=== PATIENT | male | born 1945 | race Caucasian/White ===

== ENCOUNTER 2022-01-14 10:12 | Inpatient (IN) | payer MEDICARE, MEDICAID ==
[2022-01-14] MEDS ORDERED: Sodium Chloride 0.9% 1,000 ML IV ONE ×2 (10:57→13:32)
[2022-01-14] MEDS ORDERED: Diltiazem 125 MG in Sodium Chloride 0.9% 100 ML IV SCH (11:45)
[2022-01-14] MEDS: Diltiazem 25 MG/5 ML SDV IVPUSH ONE ×3 (12:03→13:58)
[2022-01-14] MEDS ORDERED: LORazepam 2 MG/ML SDV IVPUSH ONE (12:12)
[2022-01-14] MEDS ORDERED: Ondansetron 4 MG/2 ML SDV IVPUSH ONE (12:13)
[2022-01-14] MEDS ORDERED: cefTRIAXone 2 GM Vial IVPUSH ONE (13:42)
[2022-01-14 14:29] LABS: CORONAVIRUS COVID-19 NAA NEGATIVE (NEGATIVE)
[2022-01-14] MEDS ORDERED: Nitroglycerin 0.4 MG Tab.SL SL PRN (15:08)
[2022-01-14] MEDS ORDERED: Divalproex Sodium Delayed-Release 250 MG Tab.CR PO SCH (15:15)
[2022-01-14] MEDS: Sodium Chloride 0.9% 1,000 ML IV SCH (16:17)
[2022-01-14] MEDS: Acetaminophen 325 MG Tab PO PRN ×2 (16:53→21:20)
[2022-01-14] MEDS ORDERED: Divalproex Sodium Delayed-Release 125 MG Cap.Sprink PO SCH (17:00)
[2022-01-14] MEDS ORDERED: Divalproex Sodium Delayed-Release 500 MG Tab.CR PO SCH (20:00)
[2022-01-14] MEDS: Carvedilol 3.125 MG Tab PO SCH (20:00)
[2022-01-14] MEDS: Divalproex Sodium Delayed-Release 125 MG Cap.Sprink PO SCH (21:19)
[2022-01-14] MEDS: Loratadine 10 MG Tab PO SCH (21:20)
[2022-01-14] MEDS: Apixaban 5 MG Tab PO SCH (21:20)
[2022-01-14] MEDS: atorvaSTATin 40 MG Tab PO SCH (21:20)
[2022-01-14] MEDS: traZODone 50 MG Tab PO SCH (21:20)
[2022-01-14] MEDS ORDERED: Sodium Chloride 0.9% 1,000 ML IV SCH (23:15)
[2022-01-15] MEDS ORDERED: Sodium Chloride 0.9% 1,000 ML IV SCH (02:15)
[2022-01-15] MEDS: Sodium Chloride 0.9% 1,000 ML IV SCH ×2 (06:39→16:52)
[2022-01-15] MEDS: Divalproex Sodium Delayed-Release 125 MG Cap.Sprink PO SCH ×2 (08:57→20:35)
[2022-01-15] MEDS: FLUoxetine 20 MG Cap PO SCH (08:58)
[2022-01-15] MEDS: predniSONE 5 MG Tab PO SCH (08:58)
[2022-01-15] MEDS: Carvedilol 3.125 MG Tab PO SCH ×2 (08:58→20:35)
[2022-01-15] MEDS: Famotidine 20 MG Tab PO SCH (08:58)
[2022-01-15] MEDS: Aspirin 81 MG Tab.EC PO SCH (09:01)
[2022-01-15] MEDS: Apixaban 5 MG Tab PO SCH ×2 (09:01→20:36)
[2022-01-15] MEDS: Lisinopril 2.5 MG Tab PO SCH (12:33)
[2022-01-15] MEDS ORDERED: cefTRIAXone 1 GM Vial IVPUSH SCH (13:30)
[2022-01-15] MEDS ORDERED: Sodium Chloride 0.9% 10 ML Syringe FLUSH PRN (14:20)
[2022-01-15] MEDS: Loratadine 10 MG Tab PO SCH (20:35)
[2022-01-15] MEDS: atorvaSTATin 40 MG Tab PO SCH (20:36)
[2022-01-15] MEDS: Acetaminophen 325 MG Tab PO PRN (20:36)
[2022-01-15] MEDS: traZODone 50 MG Tab PO SCH (20:36)
[2022-01-16] MEDS: Sodium Chloride 0.9% 1,000 ML IV SCH (03:08)
[2022-01-16] MEDS: FLUoxetine 20 MG Cap PO SCH (08:57)
[2022-01-16] MEDS: predniSONE 5 MG Tab PO SCH (08:57)
[2022-01-16] MEDS: Divalproex Sodium Delayed-Release 125 MG Cap.Sprink PO SCH ×2 (08:57→19:48)
[2022-01-16] MEDS: Apixaban 5 MG Tab PO SCH ×2 (08:58→20:34)
[2022-01-16] MEDS: Aspirin 81 MG Tab.EC PO SCH (08:58)
[2022-01-16] MEDS: Famotidine 20 MG Tab PO SCH (08:58)
[2022-01-16] MEDS: Carvedilol 3.125 MG Tab PO SCH ×2 (09:00→20:34)
[2022-01-16] MEDS: Lisinopril 2.5 MG Tab PO SCH (09:01)
[2022-01-16] MEDS: Amoxicillin/Clavulanate K 875-125 MG Tab PO SCH ×2 (11:10→21:02)
[2022-01-16] MEDS: Loratadine 10 MG Tab PO SCH (20:34)
[2022-01-16] MEDS: traZODone 50 MG Tab PO SCH (20:34)
[2022-01-16] MEDS: atorvaSTATin 40 MG Tab PO SCH (20:34)
[2022-01-16] MEDS: guaiFENesin/Dextromethorphan 100-10 MG/5 ML Soln 5 ML Cup PO PRN (20:37)
[2022-01-17] MEDS: Divalproex Sodium Delayed-Release 125 MG Cap.Sprink PO SCH (08:17)
[2022-01-17] MEDS: Famotidine 20 MG Tab PO SCH (08:17)
[2022-01-17] MEDS: Carvedilol 3.125 MG Tab PO SCH (08:17)
[2022-01-17] MEDS: Apixaban 5 MG Tab PO SCH (08:17)
[2022-01-17] MEDS: Aspirin 81 MG Tab.EC PO SCH (08:18)
[2022-01-17] MEDS: Lisinopril 2.5 MG Tab PO SCH (08:18)
[2022-01-17] MEDS: predniSONE 5 MG Tab PO SCH (08:18)
[2022-01-17] MEDS: FLUoxetine 20 MG Cap PO SCH (08:18)
[2022-01-17] MEDS: guaiFENesin/Dextromethorphan 100-10 MG/5 ML Soln 5 ML Cup PO PRN (08:28)
[2022-01-17] MEDS: Amoxicillin/Clavulanate K 875-125 MG Tab PO SCH (10:14)
== END 2022-01-17 12:56 | disposition home or self-care (01) | DRG 872 ==
LOC: FB.ED 10:12 → FB.MS 13:42
PROVIDERS: ADMIT Family Medicine; ATTEND Student in an Organized Health Care Education/Training Program
DX: A41.9 Sepsis, unspecified organism (principal); N39.0 Urinary tract infection, site not specified; I50.22 Chronic systolic (congestive) heart failure; N17.9 Acute kidney failure, unspecified; E88.09 Other disorders of plasma-protein metabolism, not elsewhere classified; N18.9 Chronic kidney disease, unspecified; R65.20 Severe sepsis without septic shock; I48.91 Unspecified atrial fibrillation; B96.1 Klebsiella pneumoniae [K. pneumoniae] as the cause of diseases classified elsewhere; Z79.52 Long term (current) use of systemic steroids; E86.0 Dehydration; I25.10 Atherosclerotic heart disease of native coronary artery without angina pectoris; E03.9 Hypothyroidism, unspecified; K21.9 Gastro-esophageal reflux disease without esophagitis; Z87.01 Personal history of pneumonia (recurrent); Z66 Do not resuscitate; Z20.822 Contact with and (suspected) exposure to COVID-19; G80.9 Cerebral palsy, unspecified; E78.5 Hyperlipidemia, unspecified; E66.9 Obesity, unspecified; I51.3 Intracardiac thrombosis, not elsewhere classified; F79 Unspecified intellectual disabilities; Z51.5 Encounter for palliative care; Z68.30 Body mass index [BMI] 30.0-30.9, adult; Z79.82 Long term (current) use of aspirin; Z79.01 Long term (current) use of anticoagulants; Z95.5 Presence of coronary angioplasty implant and graft; I25.2 Old myocardial infarction; Z79.899 Other long term (current) drug therapy; Z79.890 Hormone replacement therapy
CPT/HCPCS: 0241U; 36415; 70450; 71045; 80048; 80053; 81001; 83605; 85025; 85610; 86140; 87040; 87086; 87088; 93005; 93010; 96374; 96375; 99285; 99285-25; A9270-GY; J0696; J2060; J2405; J3490; J7030; J7512

== ENCOUNTER 2023-02-13 18:55 | Emergency (ER) | payer MEDICARE, MEDICAID ==
[2023-02-13 20:10] LABS: ESTIMATED GFR 62 mL/min (>60)
[2023-02-13 20:44] LABS: CORONAVIRUS COVID-19 NAA NEGATIVE (NEGATIVE)
[2023-02-13] MEDS ORDERED: Amoxicillin/Clavulanate K 500-125 MG Tab PO ONE (21:47)
== END 2023-02-13 22:02 | disposition home or self-care (01) ==
LOC: FB.ED 18:55
DX: R50.9 Fever, unspecified (principal); R79.82 Elevated C-reactive protein (CRP); D72.829 Elevated white blood cell count, unspecified; I10 Essential (primary) hypertension; E03.9 Hypothyroidism, unspecified; Z79.899 Other long term (current) drug therapy; Z20.822 Contact with and (suspected) exposure to COVID-19
CPT/HCPCS: 0240U; 36415; 71045; 80053; 81001; 85025; 86140; 99283; 99284; A9270-GY; C1758

== ENCOUNTER 2023-03-16 09:40 | Emergency (ER) | payer MEDICARE, MEDICAID ==
[2023-03-16] MEDS ORDERED: Sodium Chloride 0.9% 10 ML Syringe FLUSH PRN (09:51)
[2023-03-16 10:00] LABS: HEMATOCRIT 44.6 % (38.3-50.1); MEAN CORPUSCULAR HEMOGLOBIN 32.4 pg (27.0-33.3); MEAN CORPUSCULAR HGB CONC 33.7 g/dL (28.7-35.3); MEAN CORPUSCULAR VOLUME 96.1 fL (80.8-98.7); RED BLOOD CELL COUNT 4.64 x10(6)uL (3.90-5.90); RED CELL DISTRIBUTION WIDTH 15.1 % (12.4-15.0); WHITE BLOOD CELL COUNT,WBC 6.8 x10-3/uL (3.2-10.1)
[2023-03-16 10:09] LABS: A/G RATIO 0.7; ALANINE AMINOTRANSFERASE,ALT 14 U/L (12-36); ALBUMIN 2.6 g/dL (3.2-4.6); ALKALINE PHOSPHATASE 79 IU/L (56-112); ASPARTATE AMNIOTRANSFERASE,AST 26 IU/L (5-25); BILIRUBIN TOTAL 0.7 mg/dL (0.1-1.3); BLOOD UREA NITROGEN,BUN 16 mg/dL (7-18); BUN/CREATININE RATIO 7.3 (9-20); CALCIUM 9.9 mg/dL (8.6-10.2); CARBON DIOXIDE,CO2 23 mmol/L (21-32); CHLORIDE,CL 93 mmol/L (100-110); ESTIMATED GFR 30 mL/min (>60); GLUCOSE RANDOM 92 mg/dL (80-116); POTASSIUM,K 4.4 mmol/L (3.5-5.3); PROTEIN TOTAL,TP 6.6 g/dL (6.0-8.0); SODIUM,NA 130 mmol/L (135-145)
[2023-03-16 10:14] LABS: CREATININE 2.2 mg/dL (0.70-1.30)
[2023-03-16 10:15] LABS: LACTIC ACID 6.2 mmol/L (0.4-2.0)
== END 2023-03-16 10:13 | disposition expired ==
LOC: FB.ED 09:40
DX: G80.9 Cerebral palsy, unspecified (principal); J69.0 Pneumonitis due to inhalation of food and vomit; I10 Essential (primary) hypertension; K21.9 Gastro-esophageal reflux disease without esophagitis; M19.90 Unspecified osteoarthritis, unspecified site; E03.9 Hypothyroidism, unspecified; Z79.01 Long term (current) use of anticoagulants; Z79.899 Other long term (current) drug therapy
CPT/HCPCS: 36415; 71045; 80053; 83605; 85027; 86140; 99285